=== PATIENT | male | born 1935 | race Caucasian/White ===

== ENCOUNTER 2017-01-11 06:09 | Outpatient (CLI) | payer MEDICARE, OTHER ==
[~2017-01-11] VITALS: Ht 180.3 cm; Wt 103.0 kg
--- NOTE | ~2017-01-11 | CATH ---
Cardiac Diagnostic + PCI Report Demographics Patient Name EMORY Palma Gender Male Date of 1935 Age 81 year(s) Patient Number [id number] Date of Study 01/11/2017 Visit Number [id number] Room Number [id number] [place] [id number] Ht 180.34 cm Wt 109.2 kg Referring Thierry Coy MD Primary Physician Physician Performing Efstratiou Secondary Physician Physician Jose E Vazquez MD Diagnostic Efstratiou Assisting Physician Physician Jose E Vazquez MD Interventional Efstratiou Physician Principal Data Architect Physician Jose E Vazquez MD Findings and Conclusions Diagnostic Findings and Conclusion Mild pulmonary hypertension. Dilated R atrium and pulmonary arteries. Severe stenosis in RCA post graft and in OM graft. Diagnostic Recommendations Staged PCI to both vessels. Interventional Findings and Conclusion Successful DIMITRI to RCA through SVG. Interventional Recommendations ASA and Brilinta - lower cholesterol with addition of Zetia. Staged PCI to OM SVG. Procedure Description The patient was brought to the diagnostic cardiac catheterization-EP laboratory in the fasting, non-sedated state. Informed consent was obtained in the written and verbal form after the risks and benefits were explained. The patient had no further questions and agreed to proceed. The planned puncture-incision site(s) were shaved and prepped with ChloraPrep and draped in the usual sterile manner. Conscious sedation, supplemental oxygen, and pain control medications were delivered by a registered nurse under physician guidance. Surface ECG rhythm, blood pressure measurement, and pulse oximetry were monitored throughout the procedure. Arterial access. The access site was infiltrated with lidocaine. The vessel was entered with the Seldinger technique. A sheath was advanced into the vessel and used for catheter placement. Venous access. The access site was infiltrated with 2% lidocaine. The vessel was entered with the Seldinger technique. A sheath was advanced into the vessel and used for catheter placement. Selective left coronary angiography. A catheter was advanced into the left coronary vessel ostium under Fluoroscopic guidance. Contrast was injected by hand. Images were obtained in multiple projections. Selective right coronary angiography. A catheter was advanced into the right coronary vessel ostium under fluoroscopic guidance. Contrast was injected by hand. Images were obtained in multiple projections. Right heart catheterization. A [place] Ashwin catheter was successfully advanced to the right atrium, right ventricle, pulmonary artery, and pulmonary artery wedge position under fluoroscopic guidance. Resting hemodynamics were obtained. Measurements included pressures, arterial and venous oxygen saturation samples, and cardiac output. The Buffalo was removed without difficulty. Angioplasty and Stent Placement: A guiding catheter was used to intubate the vessel. A 0.14 wire was then used to cross the lesion. A balloon catheter was placed across the lesion and inflated. The balloon catheter was then removed. A Drug Eluting Stent was placed and inflated. Post placement angiograms were performed. Arterial and Venous hemostasis was achieved. The patient was transferred to a regular nursing floor via cart accompanied by a nurse. The patient left the laboratory in stable condition. Diagnostic Cath Status: Elective Interventional Cath Status: Elective Procedure Procedure Type Diagnostic procedure:Angiography:, RHC w/Coronary Angio PCI procedure:Drug Eluting Coronary Stent:, PDA Indications: Abnormal Stress Test and CHF. The procedure was explained in detail to the patient. Risks, complications and alternative treatments were reviewed. Written consent was obtained. Medications Reviewed with Patient prior to Procedure. Angiographic Findings Dominance: Right Cardiac Arteries and Lesion Findings LMCA: Lesion on LMCA: Distal subsection.25% stenosis . LAD: Patent, small caliber. Lesion on 1st Diag: Ostial.90% stenosis . LCx: Lesion on Mid CX: 100% stenosis . Lesion on 1st Ob Charlene% stenosis . RCA: PL Stent patent. Lesion on R PDA: Mid subsection.90% stenosis reduced to 0%. Pre procedure CAMDEN III flow was noted. Post Procedure CAMDEN III flow was present. The guidewire cross was successful.The lesion was diagnosed as a high risk lesion.Culprit lesion. Treatment results:Interventional treatment was successful. Devices used - Whisper Wire .014 x 190. Number of passes: 1. - Emerge Balloon 2.5 x 12. 1 inflation(s) to a max pressure of: 15 josefa. - NC Emerge Balloon 2.0 x 12. 1 inflation(s) to a max pressure of: 20 josefa. - NC Emerge Balloon 2.5 x 12. 1 inflation(s) to a max pressure of: 22 josefa. - Angiosculpt Balloon 2.5 x 15. Diameter: 2.5 mm. Length: 15 mm. 1 inflation(s) to a max pressure of: 20 josefa. - Promus Premier 2.75 x 20 Stent. 1 inflation(s) to a max pressure of: 18 josefa. - NC Emerge Balloon 3.25 x 12. 1 inflation(s) to a max pressure of: 20 josefa. Lesion on Mid RCA: 50% stenosis . Graft Lesions Lesion on Aorta Left to 1st Dia% stenosis . Lesion on Aorta Left to 1st Ob Charlene: Middle body.80% stenosis . Lesion on Aorta Left to 1st Ob Charlene: Proximal body.50% stenosis . Lesion on Aorta Right to R PDA: Proximal body.30% stenosis .The lesion was diffuse. Cardiac Grafts - There is a Vein graft that originates at the Aorta Right and attaches to the R PDA. - There is a Vein graft that originates at the Aorta Left and attaches to the 1st Diag. - There is a Vein graft that originates at the Aorta Left and attaches to the 1st Ob Charlene. Coronary Tree Procedure Data Procedure Date Date: 01/11/2017Start: 08:46 AMEnd: 10:08 AM Entry Locations - Retrograde Percutaneous access was performed through the Right Femoral artery (Primary location). A 6 Fr sheath was inserted. Hemostasis was successfully obtained using Angio-Seal STS PLUS (St. Ed). Closure Comments: Performed by Dr. Mandel.. - Antegrade Percutaneous access was performed through the Right Femoral vein. A 6 Fr sheath was inserted. Hemostasis was successfully obtained using Manual Compression. Closure Comments: Pressure held for 10 minutes by RT. Lamberto. Procedure Medications Order and Administration + + + + + !Time !Medication !Dosage !Route ! + + + + + !01/11/2017 08:34 AM!Fentanyl !50 mcg !I.V. ! + + + + + !01/11/2017 09:11 AM!Heparin (ACC_3) !7000 units!I.V. ! + + + + + !01/11/2017 09:22 AM!Oxygen !2 l/min !NC ! + + + + + !01/11/2017 09:24 AM!Heparin (ACC_3) !7000 units!I.V. ! + + + + + !01/11/2017 09:37 AM!Heparin (ACC_3) !3000 units!I.V. ! + + + + + !01/11/2017 09:52 AM!Integrilin (ACC_7) !20 mg !I.V. bolus ! + + + + + !01/11/2017 09:56 AM!Margaritoilinta (Ticagrelor) (ACC_20)!180 mg !P.O. ! + + + + + Devices Used - A6 Fr. Balloon Wedge Catheterwas used for:Right heart cath. - A6 Fr. BS JL 4 Diag. Catheterwas used for:Left coronary angiography.Unable to cannulate the vessel. - A6 Fr. BS JL 4.5 Diag Catheterwas used for:Left coronary angiography.Unable to cannulate the vessel. - A6 Fr. BS JR 4 Diag. Catheterwas used for:Right coronary angiography. - A6 Fr. MPA2 Diag. Catheterwas used for:SVG. - A6 Fr. MPA1 JJ Guide Catheterwas used for:SVG Intervention. Contrast Material - Isovue 147482 ml Fluoroscopy Time: Diagnostic: 21:30 minutes. Total: 21:30 minutes. Fluoroscopy Dose: Diagnostic: 2789 mGy. Total: 2789 mGy. Estimated Blood Loss: 30 ml. Additional [employer] PCI Information PCI Indication:PCI for high risk Non-STEMI or unstable angina. Medical History Performed Procedures and Imaging Results - Stress testing with SPECT MPIwas performed. Results were: Positive. Risk/Extent of ischemia was: Intermediate risk. Allergies - Morphine. - Other:(adhesive). - Morphine. - Codiene. - Other:(cyclobnzaprine). 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 Admission Data Admission Date: 01/11/2017 Admission Time: 06:09 AM Admit Source: Other Insurance Payors: Medicare. Admission Medications + +------+------+ + + + + !Medication !Dosage!Times !Last !Last !Administered !Comments ! ! ! !Per !Delivery !Delivery ! ! ! ! ! !Day !Date !Time ! ! ! + +------+------+ + + + + !Aspirin ! ! ! ! !Yes ! ! !(any) ! ! ! ! ! ! ! + +------+------+ + + + + !Beta ! ! ! ! !Yes ! ! !Mayo ! ! ! ! ! ! ! !(any) ! ! ! ! ! ! ! + +------+------+ + + + + !Statin ! ! ! ! !Yes ! ! !(any) ! ! ! ! ! ! ! + +------+------+ + + + + !ARB (any) ! ! ! ! !Yes ! ! + +------+------+ + + + + Clinical Evaluation Leading to Procedure - The patient's CAD presentation was assessed as: Stable angina. - The patient's anginal syndrome during the past two weeks was assessed as: Class II according to the [place] Cardiovascular Society Classification System (CCS). Anti-anginal medications were prescribed during the past two weeks. The medication is: Beta Blockers. - The patient has been in a state of heart failure within the past two weeks. - The patient's heart failure status was assessed as NYHA Class II. Snapshots Hemodynamics Condition: Rest O2 Consumption: Estimated: 253.51Heart Rate: 62 bpm Oxygen Saturation +--------+-----+----+ +---+ + !Location!pCO2 !pO2 !% Saturation !Hgb!O2 Content ! +--------+-----+----+ +---+ + !RA ! ! !61.4 ! ! ! +--------+-----+----+ +---+ + !PA ! ! !63.5 ! ! ! +--------+-----+----+ +---+ + !FA ! ! !88.6 ! ! ! +--------+-----+----+ +---+ + Pressures (mmHg) +-----+ + !Site !Pressure ! +-----+ + !RA !02/27 (5) ! +-----+ + !RV !41/-4 ,8 ! +-----+ + !PCW !06/02 (7) ! +-----+ + !PA !36/12 (21) ! +-----+ + !AO !163/76 (112) ! +-----+ + !AO !179/73 (118) ! +-----+ + Cardiac Output +------+ + + + !Method!CO (l/min) !CI (l/min/m2) !SV (ml) ! +------+ + + + !Ehsan !5.05 !2.2 !81.94 ! +------+ + + + Shunts Oxygen Values O2 Capacity 199.92 O2 Consumption 253.51 Flows (l/min) Qs 4.66 Vascular Resistance (dynes x sec x cm-5) + +-----+-----+----+----+---------+-------+ !CO method !TSVR !SVR !TPVR!PVR !TPVR/TSVR!PVR/SVR! + +-----+-----+----+----+---------+-------+ !Ehsan !23.29!22.36!4.23!2.81!0.18 !0.13 ! + +-----+-----+----+----+---------+-------+ !Qp or Qs !25.23!24.24! ! ! ! ! + +-----+-----+----+----+---------+-------+ Signatures dtt: Dontrell Mandel dtd: 01/11/17 0846 Physician Self Edit
[~2017-01-11 06:09] MED LIST: AFRIN) (GENASAL15 ML NOSE; ASPIRIN EC81 MG PO; ATIVAN2 MG PO; CELEXA40 MG PO; COREG12.5 MG PO; COZAAR25 MG PO; GLUCOPHAGE500 MG PO; HUMULIN N100 UNIT/1 SUB-Q; HUMULIN R100 UNIT/1 SUB-Q; K-TAB ER20 MEQ PO; LASIX40 MG PO; NEURONTIN600 MG PO; OMEPRAZOLE40 MG PO; PRAVASTATIN SOD40 MG PO; TYLENOL EXTRA500 MG PO; ULTRAM50 MG PO; VITAMIN D250000 UNIT PO
[2017-01-11 06:58] LABS: BASOPHIL % 0.5 %; EOSINOPHIL # 0.2 K/uL (0.0-0.5); EOSINOPHIL % 2.2 %; HEMATOCRIT 41.9 % (37.0-53.0); HEMOGLOBIN 14.7 g/dL (11.0-16.0); IMMATURE GRANULOCYTE % 0.5 %; LYMPHOCYTE # 1.2 K/uL (0.8-4.0); LYMPHOCYTE % 13.2 %; MCH 33.5 pg (27.0-34.0); MCHC 35.1 gm/dL (32.0-36.5); MCV 95.4 fl (83.0-98.0); MONOCYTE # 0.7 K/uL (0.0-1.0); MONOCYTE % 8.2 %; MPV 9.4 fl (9.4-12.4); NEUTROPHIL # (ANC) 6.6 K/uL (1.4-9.0); NEUTROPHIL % 75.4 %; NRBC % 0 /100WBC (0-0.00); PLATELET COUNT 195 K/uL (150-450); RBC 4.39 M/uL (3.50-5.50); RDW-CV 12.8 % (11.9-14.6); WBC 8.7 K/uL (4.0-11.0)
[2017-01-11 07:06] LABS: INR - (THERAPEUTIC) 1.03 (0.92-1.07); PROTIME 10.8 SECONDS (9.8-11.4); PTT 25 SECONDS (25-32)
[2017-01-11 07:19] LABS: ALBUMIN 3.4 gm/dL (3.5-5.0); ALK PHOS 47 IU/L (33-138); ALT 17 IU/L (12-78); ANION GAP 11.2 (10.0-19.0); AST 14 IU/L (10-40); BLOOD UREA NITROGEN 25 mg/dL (6-24); CALCIUM 8.3 mg/dL (8.5-10.5); CHLORIDE 102 mMol/L (96-110); CO2 29 mMol/L (22-32); CREATININE 1.1 mg/dL (0.6-1.3); ESTIMATED GFR (MDRD EQUATION) > 60; POTASSIUM 4.2 mMol/L (3.7-5.1); SODIUM 138 mMol/L (135-145); TOTAL BILIRUBIN 0.4 mg/dL (0.0-1.5); TOTAL PROTEIN 6.9 g/dL (6.0-8.4)
[2017-01-12 09:31] LABS: ALBUMIN 3.1 gm/dL (3.5-5.0); ALK PHOS 47 IU/L (33-138); ALT 16 IU/L (12-78); ANION GAP 11.3 (10.0-19.0); AST 9 IU/L (10-40); BLOOD UREA NITROGEN 21 mg/dL (6-24); CALCIUM 8.3 mg/dL (8.5-10.5); CHLORIDE 103 mMol/L (96-110); CO2 29 mMol/L (22-32); CREATININE 1.1 mg/dL (0.6-1.3); ESTIMATED GFR (MDRD EQUATION) > 60; POTASSIUM 4.3 mMol/L (3.7-5.1); SODIUM 139 mMol/L (135-145); TOTAL PROTEIN 6.6 g/dL (6.0-8.4)
[2017-01-12 09:35] LABS: TOTAL BILIRUBIN 0.7 mg/dL (0.0-1.5)
[2017-01-12] MEDS ORDERED: ZETIA10 MG PO (09:46)
[2017-01-12] MEDS ORDERED: BRILINTA90 MG PO (09:51)
[2017-01-12] MEDS ORDERED: LIPITOR40 MG PO (10:08)
[2017-01-12 10:12] LABS: BASOPHIL # 0.1 K/uL (0.0-0.2); BASOPHIL % 0.5 %; EOSINOPHIL # 0.2 K/uL (0.0-0.5); EOSINOPHIL % 2.5 %; HEMOGLOBIN 14.6 g/dL (11.0-16.0); IMMATURE GRANULOCYTE # 0.1 K/uL (0.0-0.3); IMMATURE GRANULOCYTE % 0.5 %; LYMPHOCYTE # 0.8 K/uL (0.8-4.0); LYMPHOCYTE % 8.6 %; MCH 33.2 pg (27.0-34.0); MCV 96.4 fl (83.0-98.0); MONOCYTE # 0.7 K/uL (0.0-1.0); MONOCYTE % 7.7 %; MPV 9.6 fl (9.4-12.4); NEUTROPHIL # (ANC) 7.3 K/uL (1.4-9.0); NEUTROPHIL % 80.2 %; NRBC % 0 /100WBC (0-0.00); PLATELET COUNT 219 K/uL (150-450); RDW-CV 12.9 % (11.9-14.6); WBC 9.1 K/uL (4.0-11.0)
[2017-01-12 10:13] LABS: HEMATOCRIT 42.6 % (37.0-53.0); MCHC 34.3 gm/dL (32.0-36.5)
== END 2017-01-12 11:30 | disposition disaster alternative care site (69) ==
LOC: GPCU 06:09 → GCAT 06:09
PROVIDERS: Internal Medicine Cardiovascular Disease; Nurse Practitioner
PROC: 4A023N6 Measurement of Cardiac Sampling and Pressure, Right Heart, Percutaneous Approach (ICD-10-PCS; principal; 2017-01-11)
PROC: 027034Z Dilation of Coronary Artery, One Artery with Drug-eluting Intraluminal Device, Percutaneous Approach (ICD-10-PCS; principal; 2017-01-11)
PROC: B2111ZZ Fluoroscopy of Multiple Coronary Arteries using Low Osmolar Contrast (ICD-10-PCS; principal; 2017-01-11)
DX: I50.9 Heart failure, unspecified (principal); I25.810 Atherosclerosis of coronary artery bypass graft(s) without angina pectoris; I10 Essential (primary) hypertension; E11.9 Type 2 diabetes mellitus without complications; R94.39 Abnormal result of other cardiovascular function study; Z79.4 Long term (current) use of insulin; Z79.84 Long term (current) use of oral hypoglycemic drugs; R60.0 Localized edema; Z95.1 Presence of aortocoronary bypass graft
CPT/HCPCS: A9270; C1725; C1760; C1769; C1874; C1887; C9600; J1327; J1644; J2001; J2250; J3010; J7030; J7040

== ENCOUNTER 2017-01-19 08:09 | Outpatient (CLI) | payer MEDICARE, OTHER ==
[~2017-01-19] VITALS: Ht 181.6 cm; Wt 99.7 kg
--- NOTE | ~2017-01-19 | CATH ---
Cardiac Interventional Report Demographics Patient Name EMORY Palma Gender Male Date of 1935 Age 81 year(s) Patient Number [id number] Date of Study 01/19/2017 Visit Number [id number] Room Number [id number] [place] [id number] Ht 180.34 cm Wt 109.2 kg Referring Thierry Coy MD Primary Physician Physician Performing Efstratiou Secondary Physician Physician Jose E Vazquez MD Diagnostic Assisting Physician Physician Interventional Efstratiou Physician Publicity Consultant Physician Jose E Vazquez MD Findings and Conclusions Interventional Findings and Conclusion 80% in stent restenosis in SVG-OM Interventional Recommendations Recommend PCI to SVG-OM Successful PCI of the mid SVG-OM 1 coronary artery using a Drug Eluting stent with filterwire protection Continue Aspirin and Brilinta Procedure Description The patient was brought to the diagnostic cardiac catheterization-EP laboratory in the fasting, non-sedated state. Informed consent was obtained in the written and verbal form after the risks and benefits were explained. The patient had no further questions and agreed to proceed. The planned puncture-incision site(s) were shaved and prepped with ChloraPrep and draped in the usual sterile manner. Conscious sedation, supplemental oxygen, and pain control medications were delivered by a registered nurse under physician guidance. Surface ECG rhythm, blood pressure measurement, and pulse oximetry were monitored throughout the procedure. Arterial access. The access site was infiltrated with lidocaine. The vessel was entered with the Seldinger technique. A sheath was advanced into the vessel and used for catheter placement. Angioplasty and Stent Placement: A guiding catheter was used to intubate the vessel. A 0.14 wire was then used to cross the lesion. A balloon catheter was placed across the lesion and inflated. The balloon catheter was then removed. A Drug Eluting Stent was placed and inflated. Post placement angiograms were performed. Arterial artery hemostasis was achieved. The patient was transferred to a regular nursing floor via cart accompanied by a nurse. The patient left the laboratory in stable condition. Interventional Cath Status: Elective Procedure Procedure Type PCI procedure:Drug Eluting Coronary Stent:, Graft Indications: CAD, History of CABG and Cardiac catheterization indicating PCI. The procedure was explained in detail to the patient. Risks, complications and alternative treatments were reviewed. Written consent was obtained. Medications Reviewed with Patient prior to Procedure. Angiographic Findings Dominance: Right There is a previous stent on R PDA Mid subsection. Graft Lesions Lesion on Aorta Left to 1st Ob Charlene: Middle body.80% stenosis 20 mm length reduced to 0%. Pre procedure CAMDEN II flow was noted. Post Procedure CAMDEN III flow was present. The lesion was diagnosed as a high risk lesion.Culprit lesion. The lesion was previously treated with the following techniques: non drug eluting stent. 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 Devices used - Filterwire 190 cm. Number of passes: 1. - Promus Premier 3.5 x 20 Stent. 1 inflation(s) to a max pressure of: 14 josefa. Cardiac Grafts - There is a Vein graft that originates at the Aorta Right and attaches to the R PDA. - There is a Vein graft that originates at the Aorta Left and attaches to the 1st Diag. - There is a Vein graft that originates at the Aorta Left and attaches to the 1st Ob Charlene.There is a previous stent on Aorta Left to 1st Ob Charlene Middle Body showing diffuse ISR. Coronary Tree Procedure Data Procedure Date Date: 01/19/2017Start: 09:48 AMEnd: 10:35 AM Entry Locations - Retrograde Percutaneous access was performed through the Left Femoral artery (Primary location). A 6 Fr sheath was inserted. Hemostasis was successfully obtained using Angio-Seal STS PLUS (St. Ed). Closure Comments: Deployed by Dr. Mandel.. Procedure Medications Order and Administration + + + + + !Time !Medication !Dosage !Route ! + + + + + !01/19/2017 09:45 AM!Versed !1 mg !I.V. ! + + + + + !01/19/2017 09:46 AM!Fentanyl !50 mcg !I.V. ! + + + + + !01/19/2017 09:48 AM!Oxygen !2 l/min !NC ! + + + + + !01/19/2017 09:51 AM!Heparin (ACC_3) !8000 units!I.V. bolus ! + + + + + !01/19/2017 10:00 AM!Heparin (ACC_3) !4000 units!I.V. bolus ! + + + + + !01/19/2017 10:24 AM!Oxygen ! !NC ! + + + + + !01/19/2017 10:24 AM!Margaritoilinta (Ticagrelor) (ACC_20)!90 mg !P.O. ! + + + + + Devices Used - A6 Fr. LCB Guide Catheterwas used for:Circumflex Intervention. Contrast Material - Isovue 11487 ml Fluoroscopy Time: Diagnostic: 8:30 minutes. Total: 8:30 minutes. Fluoroscopy Dose: Diagnostic: 927 mGy. Total: 927 mGy. Estimated Blood Loss: 20 ml. Medical History Performed Procedures and Imaging Results - Stress testing with SPECT MPIwas performed. Results were: Positive. Risk/Extent of ischemia was: Intermediate risk. Allergies - Morphine. - Other:(adhesive). - Morphine. - Codiene. - Other:(cyclobnzaprine). - Morphine. - Codiene. - Other:(cyclobenzaprine). - Tape. Risk Factors The patient risk factors include:prior PCI on 01/11/2017; prior CABG on 01/07/2002;hypertension, insulin-treated diabetes mellitus, last creatinine: 1 mg/dl, creatinine clearance: 92.52 ml/min, dyslipidemia, former tobacco use, prior heart failure and prior [place] . Admission Data Admission Date: 01/19/2017 Admission Time: 08:09 AM Admit Source: Other Insurance Payors: Medicare. Admission Medications + +------+------+ + + + + !Medication !Dosage!Times !Last !Last !Administered !Comments ! ! ! !Per !Delivery !Delivery ! ! ! ! ! !Day !Date !Time ! ! ! + +------+------+ + + + + !Aspirin ! ! ! ! !Yes ! ! !(any) ! ! ! ! ! ! ! + +------+------+ + + + + !Beta ! ! ! ! !Yes ! ! !Mayo ! ! ! ! ! ! ! !(any) ! ! ! ! ! ! ! + +------+------+ + + + + !ARB (any) ! ! ! ! !Yes ! ! + +------+------+ + + + + !Statin ! ! ! ! !Yes ! ! !(any) ! ! ! ! ! ! ! + +------+------+ + + + + Clinical Evaluation Leading to Procedure - The patient's CAD presentation was assessed as: Unstable angina. - The patient's anginal syndrome during the past two weeks was assessed as: Class IV according to the [place] Cardiovascular Society Classification System (CCS). Anti-anginal medications were prescribed during the past two weeks. The medication is: Beta Blockers. - The patient has been in a state of heart failure within the past two weeks. - The patient's heart failure status was assessed as NYHA Class II. Snapshots Hemodynamics Condition: Rest O2 Consumption: Estimated: 257.64Heart Rate: 66 bpm Pressures (mmHg) +-----+ + !Site !Pressure ! +-----+ + !AO !155/73 (106) ! +-----+ + Shunts Oxygen Values O2 Capacity 198.56 O2 Consumption 257.64 Discharge Data Discharge Date: 01/20/2017 Hospital Status: Outpatient Signatures dtt: Dontrell Mandel dtd: 01/19/17 0948 Physician Self Edit
[~2017-01-19 08:09] MED LIST changes: +BRILINTA90 MG PO; +LIPITOR40 MG PO; +ZETIA10 MG PO
[2017-01-19 08:49] LABS: BASOPHIL # 0.1 K/uL (0.0-0.2); BASOPHIL % 0.5 %; EOSINOPHIL # 0.2 K/uL (0.0-0.5); EOSINOPHIL % 2.4 %; HEMATOCRIT 42.3 % (37.0-53.0); HEMOGLOBIN 14.6 g/dL (11.0-16.0); IMMATURE GRANULOCYTE # 0.1 K/uL (0.0-0.3); IMMATURE GRANULOCYTE % 0.6 %; LYMPHOCYTE # 0.9 K/uL (0.8-4.0); LYMPHOCYTE % 9.5 %; MCH 32.7 pg (27.0-34.0); MCHC 34.5 gm/dL (32.0-36.5); MCV 94.6 fl (83.0-98.0); MONOCYTE # 0.6 K/uL (0.0-1.0); MONOCYTE % 5.9 %; MPV 9.2 fl (9.4-12.4); NEUTROPHIL # (ANC) 7.6 K/uL (1.4-9.0); NEUTROPHIL % 81.1 %; NRBC % 0 /100WBC (0-0.00); PLATELET COUNT 207 K/uL (150-450); RBC 4.47 M/uL (3.50-5.50); RDW-CV 12.8 % (11.9-14.6); WBC 9.3 K/uL (4.0-11.0)
[2017-01-19 08:57] LABS: INR - (THERAPEUTIC) 1.08 (0.92-1.07); PROTIME 11.4 SECONDS (9.8-11.4); PTT 25 SECONDS (25-32)
[2017-01-19 09:08] LABS: ALBUMIN 3.5 gm/dL (3.5-5.0); ALK PHOS 55 IU/L (33-138); ALT 25 IU/L (12-78); ANION GAP 12.5 (10.0-19.0); AST 22 IU/L (10-40); BLOOD UREA NITROGEN 18 mg/dL (6-24); CALCIUM 8.5 mg/dL (8.5-10.5); CHLORIDE 105 mMol/L (96-110); CO2 26 mMol/L (22-32); POTASSIUM 4.5 mMol/L (3.7-5.1); SODIUM 139 mMol/L (135-145)
[2017-01-19 09:09] LABS: ESTIMATED GFR (MDRD EQUATION) > 60
[2017-01-19 12:01] LABS: CPK 95 IU/L (35-332)
--- NOTE | 2017-01-19 17:14 | NUR ---
HEART CATH TODAY, LEFT GROIN ACCESSED, SLIGHTLY BRUISED BUT CLEAN DRY AND INTACT AMBULATED IN MARIO X1 AND UP INCHAIR.
[2017-01-19 18:40] LABS: CPK 88 IU/L (35-332)
[2017-01-19 23:41] LABS: CPK 84 IU/L (35-332)
--- NOTE | 2017-01-20 03:41 | NUR ---
Pt A&Ox4, VSS on RA throughout shift. Left femoral cath site soft, bruising noted, covered with dressing CDI. CSM intact. Denies pain. Voiding and taking PO without issue. Up with SBA. Plan is for possible D/C today.
[2017-01-20 05:33] LABS: CPK 69 IU/L (35-332)
[2017-01-20 05:36] LABS: ALK PHOS 56 IU/L (33-138); ALT 21 IU/L (12-78); ANION GAP 8.2 (10.0-19.0); AST 16 IU/L (10-40); BLOOD UREA NITROGEN 19 mg/dL (6-24); CALCIUM 8.3 mg/dL (8.5-10.5); CHLORIDE 105 mMol/L (96-110); CO2 29 mMol/L (22-32); CREATININE 1.1 mg/dL (0.6-1.3); ESTIMATED GFR (MDRD EQUATION) > 60; POTASSIUM 4.2 mMol/L (3.7-5.1); SODIUM 138 mMol/L (135-145); TOTAL PROTEIN 6.2 g/dL (6.0-8.4)
[2017-01-20 05:38] LABS: TOTAL BILIRUBIN 0.5 mg/dL (0.0-1.5)
--- NOTE | 2017-01-20 14:04 | NUR ---
D:Patient discharged per wheelchair to return home. Released to family. Has personal belongings. Left groin is soft, has bandaid to site. Verbelizes understanding of discharge instructions and medications, had a heart with stent placement recently. No changes to meds. Dc'd at 1110.
== END 2017-01-20 11:10 | disposition disaster alternative care site (69) ==
LOC: GCAT 08:09 → GPCU 08:09 → GCAT 01-20 11:10
PROVIDERS: Internal Medicine Cardiovascular Disease
PROC: 027034Z Dilation of Coronary Artery, One Artery with Drug-eluting Intraluminal Device, Percutaneous Approach (ICD-10-PCS; principal; 2017-01-19)
DX: I25.810 Atherosclerosis of coronary artery bypass graft(s) without angina pectoris (principal); I10 Essential (primary) hypertension; E11.9 Type 2 diabetes mellitus without complications; Z79.4 Long term (current) use of insulin; E78.5 Hyperlipidemia, unspecified
CPT/HCPCS: A9270; C1760; C1874; C1884; C1887; C9604; J1644; J2001; J2250; J3010; J7030; J7040